=== PATIENT | female | born 1990 | race Two or more races ===

== ENCOUNTER 2023-05-26 13:44 | Emergency (ER) | payer OTHER ==
[~2023-05-26] VITALS: Ht 149.9 cm; Wt 73.9 kg
[2023-05-26] MEDS ORDERED: SYNTHROID50 MCG PO (14:02)
== END 2023-05-26 16:42 | disposition home or self-care (01) ==
LOC: ER 13:45
DX: M54.50 Low back pain, unspecified (principal); G40.89 Other seizures